=== PATIENT | female | born 1945 | race Caucasian/White ===

== ENCOUNTER 2019-01-09 12:29 | Inpatient (IN) | payer MEDICARE, OTHER ==
[~2019-01-09] VITALS: Ht 157.5 cm; Wt 90.2 kg
[2019-01-09] MEDS ORDERED: ALBUTEROL/IPRATROPIUM 2.5MG/0.5MG, 3 ML ONE (12:58)
[2019-01-09] MEDS ORDERED: ALBUTEROL/IPRATROPIUM 2.5MG/0.5MG, 3 ML NPPB SCH (13:00)
[2019-01-09] MEDS ORDERED: SODIUM CHLORIDE FLUSH 10ML SYR IVF ONE (13:00)
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
[2019-01-09 13:26] LABS: BASOPHILS # (AUTO) 0.05 x10^3/uL (0-0.1); BASOPHILS % (AUTO) 1 % (0-1); EOSINOPHILS # (AUTO) 0.05 x10^3/uL (0-0.4); EOSINOPHILS % (AUTO) 1 % (1-7); LYMPHOCYTES # (AUTO) 1.43 x10^3/uL (1-3.4); LYMPHOCYTES % (AUTO) 14 % (22-44); MD NO; MEAN CORPUSCULAR VOLUME 93.8 fL (80-100); MEAN PLATELET VOLUME 8.5 fL (7.4-10.4); MONOCYTES # (AUTO) 0.59 x10^3/uL (0.2-0.8); MONOCYTES % (AUTO) 6 % (2-9); NEUTROPHILS # (AUTO) 8.17 x10^3/uL (1.8-6.8); NEUTROPHILS % (AUTO) 79 % (42-75); PLATELET COUNT 453 x10^3/uL (130-400); RED BLOOD COUNT 4.43 x10^6/uL (3.82-5.3); RED CELL DISTRIBUTION WIDTH 14.3 % (9.6-15.2)
--- NOTE | 2019-01-09 13:26 | NUR ---
BREAK RN: PT UPRIGHT ON GURNEY AWAKE & CALM, RESPONDS APPROP TO STAFF, NAD, COMFORT MEASURES PROVIDED, FAMILY AT BS, CALL LIGHT KIRK BOYCE. ERP AT BS
[2019-01-09] MEDS ORDERED: FUROSEMIDE 40 MG/4 ML IV ONE (13:30)
[2019-01-09] MEDS ORDERED: ASPIRIN 81 MG TABLET CHEW PO ONE (13:30)
[2019-01-09] MEDS ORDERED: NITROGLYCERIN OINT 2%, 1GM TP ONE ×2 (13:30→13:34)
[2019-01-09] MEDS ORDERED: ASPIRIN 81 MG TABLET CHEW ONE (13:34)
[2019-01-09] MEDS ORDERED: FUROSEMIDE 40 MG/4 ML ONE (13:34)
[2019-01-09 13:35] LABS: INTERNATIONAL NORMALIZED RATIO 1.08 (0.93-1.1); PROTHROMBIN TIME 11.3 Seconds (9.6-11.5)
[2019-01-09 13:37] LABS: ALBUMIN 2.3 g/dL (3.4-5.0); ANION GAP 8 mmol/L (5-15); CALCIUM 8.6 mg/dL (8.5-10.1); CHLORIDE 107 mmol/L (98-107)
--- NOTE | 2019-01-09 14:16 | NUR ---
PT UP TO RESTROOM WITH STEADY GAIT. PT WITH INCREASED WOB WHEN RETURNING FROM RESTROOM. PT PLACED BACK IN [facility]. HOSPITALIST AT BEDSIDE.
[2019-01-09] MEDS ORDERED: HEPARIN 5,000 UNITS/ML, 1ML IV ONE (14:30)
[2019-01-09] MEDS ORDERED: HEPARIN 5,000 UNITS/ML, 1ML ONE (14:47)
[2019-01-09] MEDS ORDERED: HEPARIN 25,000 UNITS/500ML PMX 500 ML ONE (14:47)
--- NOTE | 2019-01-09 14:50 | NUR ---
PT UP TO RESTROOM WITH ASSITANCE OF TECH.
[2019-01-09 14:58] LABS: THYROID STIMULATING HORMONE 4.13 mIU/L (0.358-3.740)
[2019-01-09] MEDS ORDERED: POLYETHYLENE GLYCOL 17 GM PACKET PO PRN (15:00)
[2019-01-09] MEDS ORDERED: NITROGLYCERIN 0.4 MG/SPRAY SL PRN (15:00)
[2019-01-09] MEDS ORDERED: NITROGLYCERIN 0.4 MG BOTTLE (25 TABS) SL PRN ×2 (15:00)
[2019-01-09] MEDS ORDERED: LABETALOL 5MG/ML, 20ML IVPush PRN (15:00)
[2019-01-09] MEDS ORDERED: ONDANSETRON 2MG/ML, 2ML IVPush PRN (15:00)
[2019-01-09] MEDS ORDERED: PHARMACY MAY ADJ FOR RENAL FX MC PRN (15:00)
[2019-01-09] MEDS ORDERED: DOCUSATE 100 MG CAPSULE PO PRN (15:00)
[2019-01-09] MEDS ORDERED: ONDANSETRON ODT 4 MG PO PRN (15:00)
--- NOTE | 2019-01-09 15:33 | NUR ---
POC UPDATED WITH PT. PT UP TO RESTROOM WITH STEADY GAIT.
[2019-01-09 15:34] LABS: HEMOGLOBIN A1C 9.7 % (4.2-6.3)
[2019-01-09] MEDS: HEPARIN 25,000 UNITS/500ML PMX 500 ML IV PRN ×4 (15:49→19:55)
--- NOTE | 2019-01-09 15:50 | NUR ---
ANTI-XA VERIFIED PRIOR TO STARTING HEPARIN. HEPARIN VERIFIED BY DYLON CURRY. POC UPDATED WITH PT. WILL CONTINUE TO MONITOR.
[2019-01-09] MEDS: INSULIN LISPRO 100 UNITS/ML, PEN SQ-INSULIN SCH ×2 (16:00→21:45)
--- NOTE | 2019-01-09 16:35 | NUR ---
PT UP TO RESTROOM WITH STEADY GAIT. POC UPDATED WITH PT.
--- NOTE | 2019-01-09 16:46 | NUR ---
REPORT TO DYLON CORONA.
[2019-01-09] MEDS: FUROSEMIDE 40 MG/4 ML IV SCH (17:52)
[2019-01-09 20:00] VITALS: BP 174/98
[2019-01-09] MEDS: HEPARIN 5,000 UNITS/ML, 1ML IV PRN (23:18)
[2019-01-10 02:20] LABS: BASOPHILS # (AUTO) 0.08 x10^3/uL (0-0.1); BASOPHILS % (AUTO) 1 % (0-1); EOSINOPHILS # (AUTO) 0.13 x10^3/uL (0-0.4); EOSINOPHILS % (AUTO) 1 % (1-7); LYMPHOCYTES % (AUTO) 18 % (22-44); MD NO; MEAN CORPUSCULAR HEMOGLOBIN 30.1 pg (27.0-34.8); MEAN CORPUSCULAR HGB CONC 31.6 g/dL (32.4-35.8); MEAN CORPUSCULAR VOLUME 95.2 fL (80-100); MEAN PLATELET VOLUME 8.6 fL (7.4-10.4); MONOCYTES % (AUTO) 7 % (2-9); NEUTROPHILS % (AUTO) 73 % (42-75); PLATELET COUNT 412 x10^3/uL (130-400); RED BLOOD COUNT 4.15 x10^6/uL (3.82-5.3); RED CELL DISTRIBUTION WIDTH 14.9 % (9.6-15.2)
[2019-01-10 02:30] LABS: ALANINE AMINOTRANSFERASE 11 U/L (12-78); ALBUMIN 1.9 g/dL (3.4-5.0); ANION GAP 6 mmol/L (5-15); CHLORIDE 107 mmol/L (98-107); CHOLESTEROL, TOTAL 143 mg/dL (140-239); CREATININE 1.54 mg/dL (0.55-1.02)
[2019-01-10 02:33] LABS: ALKALINE PHOSPHATASE 89 U/L (45-117); BILIRUBIN,TOTAL 0.3 mg/dL (0.2-1.0); CHOL/HDL RATIO 2.4; HDL CHOL % 41 % (28-40); HDL CHOLESTEROL (DIRECT) 59 mg/dL (40-60); LDL CHOLESTEROL,CALCULATED 66 mg/dL (54-169); LDL/HDL RATIO 1.1 (0.5-3.0); TOTAL PROTEIN 6.6 g/dL (6.4-8.2); TRIGLYCERIDES 89 mg/dL (50-200); VLDL CHOLESTEROL 18 mg/dL (0-25)
[2019-01-10 04:00] VITALS: BP 160/90
[2019-01-10] MEDS: SODIUM CHLORIDE 0.9% 1,000 ML IV SCH ×2 (06:00→16:00)
[2019-01-10] MEDS: ASPIRIN 81 MG TABLET EC PO SCH (06:42)
[2019-01-10] MEDS: INSULIN LISPRO 100 UNITS/ML, PEN SQ-INSULIN SCH ×4 (07:00→22:10)
[2019-01-10] MEDS ORDERED: CARVEDILOL 6.25 MG TABLET PO SCH (08:00)
[2019-01-10] MEDS: FUROSEMIDE 40 MG/4 ML IV SCH ×2 (08:04→16:02)
[2019-01-10] MEDS ORDERED: ISOSORBIDE DINITRATE 10 MG TABLET ONE (08:08)
[2019-01-10] MEDS: HEPARIN 5,000 UNITS/ML, 1ML IV PRN ×2 (08:09→22:16)
[2019-01-10] MEDS: ISOSORBIDE DINITRATE 20 MG TABLET PO SCH ×3 (08:10→22:10)
[2019-01-10] MEDS: POTASSIUM CHLORIDE 20 MEQ TAB.ER.PRT PO SCH ×2 (10:38→16:02)
[2019-01-10 13:19] LABS: CULTURE INDICATED? YES; MICROSCOPIC INDICATED
[2019-01-10] MEDS: HEPARIN 25,000 UNITS/500ML PMX 500 ML IV PRN (16:01)
[2019-01-10 20:21] VITALS: BP 127/64
[2019-01-10] MEDS: CARVEDILOL 12.5 MG TABLET PO SCH (22:10)
[2019-01-11] MEDS: SODIUM CHLORIDE 0.9% 1,000 ML IV SCH (02:00)
[2019-01-11 04:38] LABS: BASOPHILS # (AUTO) 0.11 x10^3/uL (0-0.1); BASOPHILS % (AUTO) 1 % (0-1); EOSINOPHILS % (AUTO) 1 % (1-7); LYMPHOCYTES # (AUTO) 1.58 x10^3/uL (1-3.4); LYMPHOCYTES % (AUTO) 17 % (22-44); MD NO; MEAN CORPUSCULAR HEMOGLOBIN 30.2 pg (27.0-34.8); MEAN CORPUSCULAR HGB CONC 31.5 g/dL (32.4-35.8); MEAN PLATELET VOLUME 9.5 fL (7.4-10.4); MONOCYTES # (AUTO) 0.45 x10^3/uL (0.2-0.8); MONOCYTES % (AUTO) 5 % (2-9); NEUTROPHILS % (AUTO) 76 % (42-75); PLATELET COUNT 304 x10^3/uL (130-400); RED BLOOD COUNT 3.84 x10^6/uL (3.82-5.3)
[2019-01-11 04:48] LABS: ANION GAP 6 mmol/L (5-15); CALCIUM 7.9 mg/dL (8.5-10.1); CHLORIDE 101 mmol/L (98-107)
[2019-01-11 04:55] LABS: CREATININE 1.91 mg/dL (0.55-1.02)
[2019-01-11] MEDS: ASPIRIN 81 MG TABLET EC PO SCH (05:36)
[2019-01-11] MEDS: CARVEDILOL 12.5 MG TABLET PO SCH ×2 (05:38→13:51)
[2019-01-11] MEDS: INSULIN LISPRO 100 UNITS/ML, PEN SQ-INSULIN SCH ×3 (08:41→17:05)
[2019-01-11] MEDS ORDERED: VERAPAMIL 2.5 MG/ML, 2ML ONE (08:59)
[2019-01-11] MEDS ORDERED: BIVALIRUDIN 250 MG ONE ×2 (08:59→09:33)
[2019-01-11] MEDS ORDERED: MIDAZOLAM 1 MG/ML, 5ML ONE (08:59)
[2019-01-11] MEDS ORDERED: NITROGLYCERIN 5 MG/ML, 10ML ONE (08:59)
[2019-01-11] MEDS ORDERED: LIDOCAINE 1%, 20ML ONE ×2 (08:59→19:34)
[2019-01-11] MEDS ORDERED: FENTANYL PF 100 MCG/2ML ONE ×3 (08:59→21:21)
[2019-01-11] MEDS ORDERED: HEPARIN 1,000 UNITS/ML, 10ML ONE (09:00)
[2019-01-11 09:14] VITALS: BP 112/50
[2019-01-11] MEDS: morphine SULFATE 10 MG/ML, 1ML IVPush PRN ×3 (09:15→22:14)
[2019-01-11] MEDS ORDERED: TICAGRELOR 90 MG TABLET ONE (10:46)
[2019-01-11] MEDS: ISOSORBIDE DINITRATE 20 MG TABLET PO SCH ×2 (11:36→16:44)
[2019-01-11] MEDS: FUROSEMIDE 40 MG/4 ML IV SCH ×2 (11:36→16:44)
[2019-01-11] MEDS: POTASSIUM CHLORIDE 20 MEQ TAB.ER.PRT PO SCH ×2 (11:36→16:44)
[2019-01-11 14:15] VITALS: BP 117/58
[2019-01-11] MEDS ORDERED: FUROSEMIDE 40 MG/4 ML IV ONE (14:30)
[2019-01-11] MEDS: DOPAMINE/D5W PMX 250 ML IV PRN (18:54)
[2019-01-11] MEDS ORDERED: CARVEDILOL 12.5 MG TABLET PO SCH (21:00)
[2019-01-11] MEDS ORDERED: NOREPINEPHRINE 4 MG in SODIUM CHLORIDE 0.9% 246 ML IV PRN (22:03)
[2019-01-11] MEDS ORDERED: GLUCAGON 1 MG IM PRN (22:30)
[2019-01-11] MEDS ORDERED: LIDOCAINE-MPF 1%, 2ML ENDO PRN (22:30)
[2019-01-11] MEDS ORDERED: DEXTROSE 4 GM TAB.CHEW PO PRN (22:30)
[2019-01-11] MEDS ORDERED: BISACODYL 10 MG SUPP PR PRN (22:30)
[2019-01-11] MEDS ORDERED: SENNA/DOCUSATE TABLET NG PRN (22:30)
[2019-01-11] MEDS ORDERED: LACTULOSE 20 GM/30 ML UDC NG PRN (22:30)
[2019-01-11] MEDS: ALBUTEROL/IPRATROPIUM 2.5MG/0.5MG, 3 ML INLINE SCH (22:30)
[2019-01-11] MEDS ORDERED: PHARMACY MAY ADJ FOR RENAL FX MC SCH (22:30)
[2019-01-11] MEDS ORDERED: DEXTROSE 50%, 50ML SYRINGE IVPush PRN (22:30)
[2019-01-11] MEDS ORDERED: SENNA 176 MG/5 ML ORAL SOL NG PRN (22:30)
[2019-01-11] MEDS ORDERED: AMPICILLIN/SULBACTAM 3 GM in SODIUM CHLORIDE 0.9% 100 ML IV SCH (23:00)
[2019-01-11] MEDS: AMPICILLIN/SULBACTAM 3 GM in SODIUM CHLORIDE 0.9% 100 ML IV SCH (23:00)
[2019-01-11 23:12] LABS: BASOPHILS # (AUTO) 0.02 x10^3/uL (0-0.1); BASOPHILS % (AUTO) 0 % (0-1); EOSINOPHILS % (AUTO) 0 % (1-7); LYMPHOCYTES # (AUTO) 0.99 x10^3/uL (1-3.4); LYMPHOCYTES % (AUTO) 7 % (22-44); MD NO; MEAN CORPUSCULAR HEMOGLOBIN 30.2 pg (27.0-34.8); MEAN CORPUSCULAR HGB CONC 31.7 g/dL (32.4-35.8); MEAN CORPUSCULAR VOLUME 95.3 fL (80-100); MONOCYTES # (AUTO) 0.55 x10^3/uL (0.2-0.8); MONOCYTES % (AUTO) 4 % (2-9); NEUTROPHILS # (AUTO) 11.92 x10^3/uL (1.8-6.8); NEUTROPHILS % (AUTO) 88 % (42-75); PLATELET COUNT 386 x10^3/uL (130-400); RED BLOOD COUNT 4.36 x10^6/uL (3.82-5.3)
[2019-01-11 23:18] LABS: INTERNATIONAL NORMALIZED RATIO 1.18 (0.93-1.1); PROTHROMBIN TIME 12.3 Seconds (9.6-11.5)
[2019-01-11 23:25] LABS: ANION GAP 10 mmol/L (5-15); CALCIUM 8.2 mg/dL (8.5-10.1); CHLORIDE 99 mmol/L (98-107); CREATININE 2.02 mg/dL (0.55-1.02); TRIGLYCERIDES 227 mg/dL (50-200)
[2019-01-12] MEDS: HEPARIN 5,000 UNITS/ML, 1ML SQ SCH ×3 (00:17→15:37)
[2019-01-12] MEDS: FENTANYL PF 100 MCG/2ML IVPush PRN (00:17)
[2019-01-12] MEDS: TICAGRELOR 90 MG TABLET PO SCH ×3 (00:19→20:38)
[2019-01-12] MEDS: ISOSORBIDE DINITRATE 20 MG TABLET PO SCH (00:19)
[2019-01-12] MEDS: PROPOFOL 100 ML IV PRN ×4 (00:36→17:46)
[2019-01-12] MEDS: INSULIN LISPRO 100 UNITS/ML, PEN SQ-INSULIN SCH ×4 (00:39→20:38)
[2019-01-12] MEDS: ALBUTEROL/IPRATROPIUM 2.5MG/0.5MG, 3 ML INLINE SCH ×6 (02:17→21:43)
[2019-01-12] MEDS: DOPAMINE/D5W PMX 250 ML IV PRN (04:04)
[2019-01-12 04:38] LABS: BASOPHILS # (AUTO) 0.04 x10^3/uL (0-0.1); BASOPHILS % (AUTO) 0 % (0-1); EOSINOPHILS # (AUTO) 0.01 x10^3/uL (0-0.4); EOSINOPHILS % (AUTO) 0 % (1-7); LYMPHOCYTES # (AUTO) 1.33 x10^3/uL (1-3.4); LYMPHOCYTES % (AUTO) 10 % (22-44); MD NO; MEAN CORPUSCULAR HEMOGLOBIN 29.9 pg (27.0-34.8); MEAN CORPUSCULAR HGB CONC 31.7 g/dL (32.4-35.8); MEAN CORPUSCULAR VOLUME 94.3 fL (80-100); MEAN PLATELET VOLUME 9.1 fL (7.4-10.4); MONOCYTES # (AUTO) 1.07 x10^3/uL (0.2-0.8); MONOCYTES % (AUTO) 8 % (2-9); NEUTROPHILS % (AUTO) 82 % (42-75); PLATELET COUNT 375 x10^3/uL (130-400); RED BLOOD COUNT 4.15 x10^6/uL (3.82-5.3); RED CELL DISTRIBUTION WIDTH 14.5 % (9.6-15.2)
[2019-01-12 04:45] LABS: ALANINE AMINOTRANSFERASE 14 U/L (12-78); ALBUMIN 1.9 g/dL (3.4-5.0); ANION GAP 7 mmol/L (5-15); CALCIUM 7.8 mg/dL (8.5-10.1); CHLORIDE 100 mmol/L (98-107); CREATININE 1.98 mg/dL (0.55-1.02)
[2019-01-12 04:49] LABS: ALKALINE PHOSPHATASE 93 U/L (45-117); BILIRUBIN,TOTAL 0.5 mg/dL (0.2-1.0)
[2019-01-12 05:29] LABS: MICROSCOPIC AUTO
[2019-01-12 05:30] LABS: CULTURE INDICATED? YES
[2019-01-12] MEDS ORDERED: INSULIN LISPRO 100 UNITS/ML, PEN SQ-INSULIN SCH (07:00)
[2019-01-12] MEDS ORDERED: ASPIRIN 81 MG TABLET EC PO SCH (09:00)
[2019-01-12] MEDS ORDERED: MAGNESIUM SULFATE PMX 2GM/50ML 50 ML IV ONE ×2 (09:00)
[2019-01-12] MEDS: ASPIRIN 81 MG TABLET CHEW PO SCH (09:16)
[2019-01-12] MEDS: FUROSEMIDE 40 MG/4 ML IV SCH ×2 (09:16→15:38)
[2019-01-12] MEDS: POTASSIUM CHLORIDE 10% 40 MEQ/30 ML UDC NG SCH ×2 (09:17→20:38)
[2019-01-12] MEDS: SODIUM CHLORIDE FLUSH 10ML SYR IVF SCH ×2 (09:22→20:38)
[2019-01-12] MEDS: AMPICILLIN/SULBACTAM 3 GM in SODIUM CHLORIDE 0.9% 100 ML IV SCH ×2 (12:28→23:22)
--- NOTE | 2019-01-12 12:29 | NUR ---
TF Recommendations when appropriate: Vital High Protein ON propofol: 45 ml/hr OFF propofol: 50 ml/hr
[2019-01-13] MEDS: ALBUTEROL/IPRATROPIUM 2.5MG/0.5MG, 3 ML INLINE SCH ×6 (02:06→22:00)
[2019-01-13] MEDS: HEPARIN 5,000 UNITS/ML, 1ML SQ SCH ×4 (02:37→23:43)
[2019-01-13] MEDS: FENTANYL PF 100 MCG/2ML IVPush PRN (02:38)
[2019-01-13] MEDS: PROPOFOL 100 ML IV PRN ×4 (02:38→23:43)
[2019-01-13 04:55] LABS: BASOPHILS # (AUTO) 0.03 x10^3/uL (0-0.1); BASOPHILS % (AUTO) 0 % (0-1); EOSINOPHILS # (AUTO) 0.06 x10^3/uL (0-0.4); EOSINOPHILS % (AUTO) 1 % (1-7); LYMPHOCYTES # (AUTO) 0.85 x10^3/uL (1-3.4); LYMPHOCYTES % (AUTO) 8 % (22-44); MD NO; MEAN CORPUSCULAR HEMOGLOBIN 29.9 pg (27.0-34.8); MEAN CORPUSCULAR HGB CONC 31.7 g/dL (32.4-35.8); MEAN CORPUSCULAR VOLUME 94.4 fL (80-100); MEAN PLATELET VOLUME 9.3 fL (7.4-10.4); MONOCYTES # (AUTO) 0.94 x10^3/uL (0.2-0.8); MONOCYTES % (AUTO) 9 % (2-9); NEUTROPHILS # (AUTO) 8.84 x10^3/uL (1.8-6.8); NEUTROPHILS % (AUTO) 82 % (42-75); PLATELET COUNT 293 x10^3/uL (130-400); RED BLOOD COUNT 4.17 x10^6/uL (3.82-5.3); RED CELL DISTRIBUTION WIDTH 14.8 % (9.6-15.2)
[2019-01-13 05:08] LABS: ANION GAP 7 mmol/L (5-15); CALCIUM 8.3 mg/dL (8.5-10.1); CHLORIDE 103 mmol/L (98-107); CREATININE 2.24 mg/dL (0.55-1.02)
[2019-01-13] MEDS: INSULIN LISPRO 100 UNITS/ML, PEN SQ-INSULIN SCH ×4 (05:53→21:04)
[2019-01-13] MEDS: FUROSEMIDE 40 MG/4 ML IV SCH (07:34)
[2019-01-13] MEDS: POTASSIUM CHLORIDE 10% 40 MEQ/30 ML UDC NG SCH (07:34)
[2019-01-13] MEDS: SODIUM CHLORIDE FLUSH 10ML SYR IVF SCH ×2 (07:34→21:05)
[2019-01-13] MEDS: TICAGRELOR 90 MG TABLET PO SCH ×2 (07:35→21:04)
[2019-01-13] MEDS: ASPIRIN 81 MG TABLET CHEW PO SCH (07:35)
[2019-01-13] MEDS: CEFTRIAXONE PMX 1GM/50ML 50 ML IV SCH (09:45)
[2019-01-13] MEDS: METRONIDAZOLE PMX 500MG/100ML 100 ML IVPB SCH ×2 (12:04→17:16)
[2019-01-13] MEDS: DOPAMINE/D5W PMX 250 ML IV PRN (14:44)
[2019-01-14] MEDS: FENTANYL PF 100 MCG/2ML IVPush PRN (00:58)
[2019-01-14] MEDS: METRONIDAZOLE PMX 500MG/100ML 100 ML IVPB SCH ×3 (01:21→17:37)
[2019-01-14] MEDS: ALBUTEROL/IPRATROPIUM 2.5MG/0.5MG, 3 ML INLINE SCH ×3 (02:00→10:00)
[2019-01-14] MEDS: INSULIN LISPRO 100 UNITS/ML, PEN SQ-INSULIN SCH ×4 (03:42→21:38)
[2019-01-14 04:29] LABS: BASOPHILS # (AUTO) 0.07 x10^3/uL (0-0.1); BASOPHILS % (AUTO) 1 % (0-1); EOSINOPHILS # (AUTO) 0.32 x10^3/uL (0-0.4); EOSINOPHILS % (AUTO) 3 % (1-7); LYMPHOCYTES % (AUTO) 16 % (22-44); MD NO; MEAN CORPUSCULAR HEMOGLOBIN 30.9 pg (27.0-34.8); MEAN CORPUSCULAR HGB CONC 32.5 g/dL (32.4-35.8); MEAN PLATELET VOLUME 9.8 fL (7.4-10.4); MONOCYTES # (AUTO) 0.94 x10^3/uL (0.2-0.8); MONOCYTES % (AUTO) 10 % (2-9); NEUTROPHILS # (AUTO) 6.51 x10^3/uL (1.8-6.8); NEUTROPHILS % (AUTO) 70 % (42-75); PLATELET COUNT 252 x10^3/uL (130-400); RED BLOOD COUNT 3.81 x10^6/uL (3.82-5.3); RED CELL DISTRIBUTION WIDTH 14.8 % (9.6-15.2)
[2019-01-14 04:43] LABS: ANION GAP 6 mmol/L (5-15); CALCIUM 8.2 mg/dL (8.5-10.1); CHLORIDE 101 mmol/L (98-107); CREATININE 2.22 mg/dL (0.55-1.02); TRIGLYCERIDES 99 mg/dL (50-200)
[2019-01-14] MEDS: SODIUM CHLORIDE FLUSH 10ML SYR IVF SCH ×2 (08:36→21:39)
[2019-01-14] MEDS: FUROSEMIDE 40 MG/4 ML IV SCH ×2 (08:36→21:38)
[2019-01-14] MEDS: TICAGRELOR 90 MG TABLET PO SCH ×2 (08:45→21:38)
[2019-01-14] MEDS: ASPIRIN 81 MG TABLET CHEW PO SCH (08:47)
[2019-01-14] MEDS: PROPOFOL 100 ML IV PRN (08:48)
[2019-01-14] MEDS: CEFTRIAXONE PMX 1GM/50ML 50 ML IV SCH (10:10)
[2019-01-14] MEDS: HEPARIN 5,000 UNITS/ML, 1ML SQ SCH ×2 (11:04→16:45)
[2019-01-14] MEDS ORDERED: ALBUTEROL/IPRATROPIUM 2.5MG/0.5MG, 3 ML NPPB PRN (12:30)
[2019-01-14] MEDS: ACETAMINOPHEN 325 MG TABLET PO PRN (13:07)
[2019-01-15] MEDS: HEPARIN 5,000 UNITS/ML, 1ML SQ SCH ×3 (00:56→18:27)
[2019-01-15] MEDS: METRONIDAZOLE PMX 500MG/100ML 100 ML IVPB SCH (01:31)
[2019-01-15] MEDS: INSULIN LISPRO 100 UNITS/ML, PEN SQ-INSULIN SCH ×4 (03:07→21:30)
[2019-01-15 04:58] LABS: BASOPHILS # (AUTO) 0.02 x10^3/uL (0-0.1); BASOPHILS % (AUTO) 0 % (0-1); EOSINOPHILS # (AUTO) 0.42 x10^3/uL (0-0.4); EOSINOPHILS % (AUTO) 5 % (1-7); LYMPHOCYTES # (AUTO) 1.41 x10^3/uL (1-3.4); LYMPHOCYTES % (AUTO) 15 % (22-44); MD NO; MEAN CORPUSCULAR HEMOGLOBIN 30.2 pg (27.0-34.8); MEAN CORPUSCULAR HGB CONC 31.7 g/dL (32.4-35.8); MEAN CORPUSCULAR VOLUME 95.5 fL (80-100); MEAN PLATELET VOLUME 9.9 fL (7.4-10.4); MONOCYTES # (AUTO) 0.97 x10^3/uL (0.2-0.8); MONOCYTES % (AUTO) 11 % (2-9); NEUTROPHILS # (AUTO) 6.31 x10^3/uL (1.8-6.8); NEUTROPHILS % (AUTO) 69 % (42-75); PLATELET COUNT 249 x10^3/uL (130-400); RED BLOOD COUNT 3.95 x10^6/uL (3.82-5.3); RED CELL DISTRIBUTION WIDTH 14.8 % (9.6-15.2)
[2019-01-15 05:05] LABS: ANION GAP 4 mmol/L (5-15); CALCIUM 8.5 mg/dL (8.5-10.1); CHLORIDE 101 mmol/L (98-107); CREATININE 2.06 mg/dL (0.55-1.02)
[2019-01-15] MEDS: ASPIRIN 81 MG TABLET CHEW PO SCH (09:27)
[2019-01-15] MEDS: CEFTRIAXONE PMX 1GM/50ML 50 ML IV SCH (09:27)
[2019-01-15] MEDS: TICAGRELOR 90 MG TABLET PO SCH ×2 (09:27→21:30)
[2019-01-15] MEDS: SODIUM CHLORIDE FLUSH 10ML SYR IVF SCH ×2 (09:28→21:30)
[2019-01-16] MEDS: HEPARIN 5,000 UNITS/ML, 1ML SQ SCH ×3 (00:40→16:30)
[2019-01-16] MEDS: CEFTRIAXONE PMX 1GM/50ML 50 ML IV SCH (08:30)
[2019-01-16] MEDS: TICAGRELOR 90 MG TABLET PO SCH ×2 (08:31→19:50)
[2019-01-16] MEDS: ASPIRIN 81 MG TABLET CHEW PO SCH (08:31)
[2019-01-16] MEDS: SODIUM CHLORIDE FLUSH 10ML SYR IVF SCH ×2 (08:32→19:50)
[2019-01-16] MEDS: INSULIN LISPRO 100 UNITS/ML, PEN SQ-INSULIN SCH ×4 (09:11→19:50)
[2019-01-16] MEDS ORDERED: PNEUMOCOCCAL 23 VACCINE IM-VACC ONE (11:30)
[2019-01-16 19:50] VITALS: BP 164/91
[2019-01-17] MEDS: HEPARIN 5,000 UNITS/ML, 1ML SQ SCH ×4 (00:09→23:50)
[2019-01-17 02:09] VITALS: BP 116/55
[2019-01-17 04:46] LABS: BASOPHILS # (AUTO) 0.04 x10^3/uL (0-0.1); BASOPHILS % (AUTO) 1 % (0-1); EOSINOPHILS # (AUTO) 0.47 x10^3/uL (0-0.4); EOSINOPHILS % (AUTO) 6 % (1-7); LYMPHOCYTES # (AUTO) 2.49 x10^3/uL (1-3.4); LYMPHOCYTES % (AUTO) 31 % (22-44); MD NO; MEAN CORPUSCULAR HGB CONC 31.5 g/dL (32.4-35.8); MEAN CORPUSCULAR VOLUME 95.4 fL (80-100); MEAN PLATELET VOLUME 9.3 fL (7.4-10.4); MONOCYTES # (AUTO) 1.06 x10^3/uL (0.2-0.8); MONOCYTES % (AUTO) 13 % (2-9); NEUTROPHILS # (AUTO) 4.06 x10^3/uL (1.8-6.8); NEUTROPHILS % (AUTO) 50 % (42-75); PLATELET COUNT 247 x10^3/uL (130-400); RED BLOOD COUNT 4.12 x10^6/uL (3.82-5.3)
[2019-01-17 04:49] LABS: ANION GAP 4 mmol/L (5-15); CALCIUM 8.8 mg/dL (8.5-10.1); CHLORIDE 102 mmol/L (98-107); CREATININE 1.62 mg/dL (0.55-1.02)
[2019-01-17] MEDS: INSULIN LISPRO 100 UNITS/ML, PEN SQ-INSULIN SCH ×4 (07:00→21:58)
[2019-01-17 07:40] VITALS: BP 174/85
[2019-01-17] MEDS: TICAGRELOR 90 MG TABLET PO SCH ×2 (08:31→20:50)
[2019-01-17] MEDS: LISINOPRIL 5 MG TABLET PO SCH (08:31)
[2019-01-17] MEDS: ASPIRIN 81 MG TABLET CHEW PO SCH (08:31)
[2019-01-17] MEDS: SODIUM CHLORIDE FLUSH 10ML SYR IVF SCH ×2 (08:32→20:50)
[2019-01-17] MEDS: CEFTRIAXONE PMX 1GM/50ML 50 ML IV SCH (09:42)
[2019-01-17 14:00] VITALS: BP 154/75
[2019-01-17 18:49] VITALS: BP 147/80
[2019-01-17] MEDS: ATORVASTATIN 40 MG TABLET PO SCH (20:50)
[2019-01-17] MEDS ORDERED: SODIUM CHLORIDE FLUSH 0.9%, 20 ML ONE (23:00)
[2019-01-17] MEDS ORDERED: PROPOFOL 10 MG/ML, 100ML IV ONE (23:00)
[2019-01-17] MEDS ORDERED: VECURONIUM 10 MG ONE (23:00)
[2019-01-17] MEDS ORDERED: ETOMIDATE 20 MG/10 ML ONE (23:00)
[2019-01-18 02:17] VITALS: BP 136/74
[2019-01-18 05:42] LABS: BASOPHILS # (AUTO) 0.04 x10^3/uL (0-0.1); BASOPHILS % (AUTO) 1 % (0-1); EOSINOPHILS # (AUTO) 0.29 x10^3/uL (0-0.4); EOSINOPHILS % (AUTO) 4 % (1-7); LYMPHOCYTES # (AUTO) 2.04 x10^3/uL (1-3.4); LYMPHOCYTES % (AUTO) 29 % (22-44); MD NO; MEAN CORPUSCULAR HEMOGLOBIN 30.7 pg (27.0-34.8); MEAN CORPUSCULAR VOLUME 95.9 fL (80-100); MEAN PLATELET VOLUME 9.5 fL (7.4-10.4); MONOCYTES % (AUTO) 14 % (2-9); NEUTROPHILS # (AUTO) 3.68 x10^3/uL (1.8-6.8); NEUTROPHILS % (AUTO) 52 % (42-75); PLATELET COUNT 247 x10^3/uL (130-400); RED BLOOD COUNT 4.12 x10^6/uL (3.82-5.3); RED CELL DISTRIBUTION WIDTH 15.2 % (9.6-15.2)
[2019-01-18 05:48] LABS: CHLORIDE 104 mmol/L (98-107)
[2019-01-18 05:55] LABS: ANION GAP 7 mmol/L (5-15); CALCIUM 8.6 mg/dL (8.5-10.1)
[2019-01-18 06:45] VITALS: BP 155/79
[2019-01-18] MEDS: INSULIN LISPRO 100 UNITS/ML, PEN SQ-INSULIN SCH ×4 (08:22→21:09)
[2019-01-18] MEDS: ASPIRIN 81 MG TABLET CHEW PO SCH (09:11)
[2019-01-18] MEDS: CEFTRIAXONE PMX 1GM/50ML 50 ML IV SCH (09:11)
[2019-01-18] MEDS: TICAGRELOR 90 MG TABLET PO SCH ×2 (09:11→20:35)
[2019-01-18] MEDS: LISINOPRIL 5 MG TABLET PO SCH (09:11)
[2019-01-18] MEDS: SODIUM CHLORIDE FLUSH 10ML SYR IVF SCH ×2 (09:11→20:35)
[2019-01-18] MEDS: HEPARIN 5,000 UNITS/ML, 1ML SQ SCH ×2 (09:11→17:57)
[2019-01-18] MEDS ORDERED: POTASSIUM CHLORIDE 20 MEQ TAB.ER.PRT PO ONE ×2 (09:30→16:00)
[2019-01-18 13:50] VITALS: BP 161/82
[2019-01-18] MEDS ORDERED: FUROSEMIDE 20 MG/2 ML IV ONE (16:30)
[2019-01-18 18:43] VITALS: BP 139/81
[2019-01-18] MEDS: ATORVASTATIN 40 MG TABLET PO SCH (20:35)
[2019-01-19 00:12] VITALS: BP 147/83
[2019-01-19] MEDS: HEPARIN 5,000 UNITS/ML, 1ML SQ SCH ×3 (02:48→17:28)
[2019-01-19 04:52] LABS: BASOPHILS # (AUTO) 0.05 x10^3/uL (0-0.1); BASOPHILS % (AUTO) 1 % (0-1); EOSINOPHILS # (AUTO) 0.35 x10^3/uL (0-0.4); EOSINOPHILS % (AUTO) 5 % (1-7); LYMPHOCYTES # (AUTO) 2.13 x10^3/uL (1-3.4); LYMPHOCYTES % (AUTO) 32 % (22-44); MD NO; MEAN CORPUSCULAR HEMOGLOBIN 30.6 pg (27.0-34.8); MEAN CORPUSCULAR HGB CONC 32.1 g/dL (32.4-35.8); MEAN CORPUSCULAR VOLUME 95.6 fL (80-100); MEAN PLATELET VOLUME 9.3 fL (7.4-10.4); MONOCYTES # (AUTO) 0.93 x10^3/uL (0.2-0.8); MONOCYTES % (AUTO) 14 % (2-9); NEUTROPHILS # (AUTO) 3.29 x10^3/uL (1.8-6.8); NEUTROPHILS % (AUTO) 49 % (42-75); PLATELET COUNT 237 x10^3/uL (130-400); RED BLOOD COUNT 4.13 x10^6/uL (3.82-5.3); RED CELL DISTRIBUTION WIDTH 14.9 % (9.6-15.2)
[2019-01-19 05:02] LABS: ALANINE AMINOTRANSFERASE 13 U/L (12-78); ALBUMIN 2.1 g/dL (3.4-5.0); ANION GAP 4 mmol/L (5-15); CALCIUM 8.7 mg/dL (8.5-10.1); CHLORIDE 106 mmol/L (98-107); CREATININE 1.61 mg/dL (0.55-1.02)
[2019-01-19 05:04] LABS: ALKALINE PHOSPHATASE 67 U/L (45-117); BILIRUBIN,TOTAL 0.3 mg/dL (0.2-1.0); TOTAL PROTEIN 6.6 g/dL (6.4-8.2)
[2019-01-19 08:36] VITALS: BP 164/100
[2019-01-19 09:06] VITALS: BP 116/74
[2019-01-19] MEDS: TICAGRELOR 90 MG TABLET PO SCH ×2 (09:19→20:59)
[2019-01-19] MEDS: CEFTRIAXONE PMX 1GM/50ML 50 ML IV SCH (09:19)
[2019-01-19] MEDS: INSULIN LISPRO 100 UNITS/ML, PEN SQ-INSULIN SCH ×4 (09:19→21:00)
[2019-01-19] MEDS: ASPIRIN 81 MG TABLET CHEW PO SCH (09:20)
[2019-01-19] MEDS: SODIUM CHLORIDE FLUSH 10ML SYR IVF SCH ×2 (09:20→21:00)
[2019-01-19] MEDS: LISINOPRIL 5 MG TABLET PO SCH (09:20)
[2019-01-19] MEDS: METOPROLOL TARTRATE 25 MG TABLET PO SCH ×2 (09:25→16:33)
[2019-01-19 12:30] VITALS: BP 116/66
[2019-01-19] MEDS: ACETAMINOPHEN 325 MG TABLET PO PRN (16:20)
[2019-01-19] MEDS ORDERED: LORazepam 0.5MG TABLET ONE (16:31)
[2019-01-19] MEDS: LORazepam 0.5MG TABLET PO PRN (16:34)
[2019-01-19 19:33] VITALS: BP 138/78
[2019-01-19] MEDS: ATORVASTATIN 40 MG TABLET PO SCH (20:59)
[2019-01-20] MEDS: HEPARIN 5,000 UNITS/ML, 1ML SQ SCH ×3 (01:14→17:26)
[2019-01-20 01:21] VITALS: BP 133/76
[2019-01-20 04:59] LABS: BASOPHILS # (AUTO) 0.09 x10^3/uL (0-0.1); BASOPHILS % (AUTO) 1 % (0-1); EOSINOPHILS # (AUTO) 0.46 x10^3/uL (0-0.4); EOSINOPHILS % (AUTO) 6 % (1-7); LYMPHOCYTES # (AUTO) 2.73 x10^3/uL (1-3.4); LYMPHOCYTES % (AUTO) 36 % (22-44); MD NO; MEAN CORPUSCULAR HEMOGLOBIN 30.6 pg (27.0-34.8); MEAN CORPUSCULAR HGB CONC 31.9 g/dL (32.4-35.8); MEAN CORPUSCULAR VOLUME 96.2 fL (80-100); MEAN PLATELET VOLUME 9.1 fL (7.4-10.4); MONOCYTES # (AUTO) 1.01 x10^3/uL (0.2-0.8); MONOCYTES % (AUTO) 13 % (2-9); NEUTROPHILS # (AUTO) 3.28 x10^3/uL (1.8-6.8); NEUTROPHILS % (AUTO) 43 % (42-75); PLATELET COUNT 235 x10^3/uL (130-400); RED BLOOD COUNT 3.97 x10^6/uL (3.82-5.3); RED CELL DISTRIBUTION WIDTH 15.3 % (9.6-15.2)
[2019-01-20 05:12] LABS: ALANINE AMINOTRANSFERASE 15 U/L (12-78); ALBUMIN 2.1 g/dL (3.4-5.0); ANION GAP 5 mmol/L (5-15); CALCIUM 8.4 mg/dL (8.5-10.1); CHLORIDE 107 mmol/L (98-107); CREATININE 1.46 mg/dL (0.55-1.02)
[2019-01-20 05:15] LABS: ALKALINE PHOSPHATASE 68 U/L (45-117); BILIRUBIN,TOTAL 0.5 mg/dL (0.2-1.0); TOTAL PROTEIN 6.6 g/dL (6.4-8.2)
[2019-01-20] MEDS: METOPROLOL TARTRATE 25 MG TABLET PO SCH ×4 (06:01→20:47)
[2019-01-20 06:30] VITALS: BP 127/72
[2019-01-20] MEDS: INSULIN LISPRO 100 UNITS/ML, PEN SQ-INSULIN SCH ×4 (08:13→20:58)
[2019-01-20] MEDS: TICAGRELOR 90 MG TABLET PO SCH ×2 (08:14→20:46)
[2019-01-20] MEDS: LISINOPRIL 5 MG TABLET PO SCH (08:14)
[2019-01-20] MEDS: SODIUM CHLORIDE FLUSH 10ML SYR IVF SCH ×2 (08:14→20:47)
[2019-01-20] MEDS: ASPIRIN 81 MG TABLET CHEW PO SCH (08:14)
[2019-01-20] MEDS: CEFTRIAXONE PMX 1GM/50ML 50 ML IV SCH (10:16)
[2019-01-20 12:31] VITALS: BP 135/77
[2019-01-20 13:11] VITALS: BP 155/88
[2019-01-20 18:55] VITALS: BP 133/80
[2019-01-20] MEDS: ATORVASTATIN 40 MG TABLET PO SCH (20:46)
[2019-01-21 01:52] VITALS: BP 141/83
[2019-01-21] MEDS: HEPARIN 5,000 UNITS/ML, 1ML SQ SCH (02:55)
[2019-01-21 06:44] VITALS: BP 137/68
[2019-01-21] MEDS: TICAGRELOR 90 MG TABLET PO SCH ×2 (08:29→20:02)
[2019-01-21] MEDS: METOPROLOL TARTRATE 25 MG TABLET PO SCH ×4 (08:29→20:04)
[2019-01-21] MEDS: INSULIN LISPRO 100 UNITS/ML, PEN SQ-INSULIN SCH ×4 (08:29→20:05)
[2019-01-21] MEDS: ASPIRIN 81 MG TABLET CHEW PO SCH (08:29)
[2019-01-21] MEDS: LISINOPRIL 5 MG TABLET PO SCH (08:30)
[2019-01-21] MEDS: SODIUM CHLORIDE FLUSH 10ML SYR IVF SCH ×2 (08:30→20:03)
[2019-01-21] MEDS ORDERED: METOPROLOL TARTRATE 25 MG TABLET PO ONE (09:00)
[2019-01-21] MEDS: CEFTRIAXONE PMX 1GM/50ML 50 ML IV SCH (10:09)
[2019-01-21 11:55] VITALS: BP 144/84
[2019-01-21 12:42] VITALS: BP 148/81
[2019-01-21] MEDS: CEFDINIR 300 MG CAPSULE PO SCH ×2 (16:48→20:03)
[2019-01-21 18:54] VITALS: BP 148/81
[2019-01-21] MEDS: ATORVASTATIN 40 MG TABLET PO SCH (20:03)
[2019-01-22] MEDS: ACETAMINOPHEN 325 MG TABLET PO PRN ×2 (00:15→21:56)
[2019-01-22] MEDS: LORazepam 0.5MG TABLET PO PRN (00:17)
[2019-01-22 00:57] VITALS: BP 119/75
[2019-01-22 07:05] VITALS: BP 120/72
[2019-01-22 08:53] LABS: BASOPHILS # (AUTO) 0.07 x10^3/uL (0-0.1); BASOPHILS % (AUTO) 1 % (0-1); EOSINOPHILS # (AUTO) 0.29 x10^3/uL (0-0.4); EOSINOPHILS % (AUTO) 4 % (1-7); LYMPHOCYTES # (AUTO) 2.35 x10^3/uL (1-3.4); LYMPHOCYTES % (AUTO) 31 % (22-44); MD NO; MEAN CORPUSCULAR HEMOGLOBIN 30.2 pg (27.0-34.8); MEAN CORPUSCULAR HGB CONC 32.1 g/dL (32.4-35.8); MEAN CORPUSCULAR VOLUME 94.1 fL (80-100); MEAN PLATELET VOLUME 8.9 fL (7.4-10.4); MONOCYTES # (AUTO) 0.84 x10^3/uL (0.2-0.8); MONOCYTES % (AUTO) 11 % (2-9); NEUTROPHILS # (AUTO) 4.11 x10^3/uL (1.8-6.8); NEUTROPHILS % (AUTO) 54 % (42-75); PLATELET COUNT 225 x10^3/uL (130-400); RED BLOOD COUNT 4.16 x10^6/uL (3.82-5.3); RED CELL DISTRIBUTION WIDTH 14.9 % (9.6-15.2)
[2019-01-22 08:54] LABS: ALANINE AMINOTRANSFERASE 18 U/L (12-78); ALBUMIN 2.4 g/dL (3.4-5.0); ANION GAP 11 mmol/L (5-15); CALCIUM 8.6 mg/dL (8.5-10.1); CHLORIDE 106 mmol/L (98-107); CREATININE 1.54 mg/dL (0.55-1.02)
[2019-01-22 08:56] LABS: ALKALINE PHOSPHATASE 73 U/L (45-117); BILIRUBIN,TOTAL 0.5 mg/dL (0.2-1.0); TOTAL PROTEIN 7.4 g/dL (6.4-8.2)
[2019-01-22] MEDS: SODIUM CHLORIDE NASAL SPRAY 45ML BOTTLE NAS PRN (08:56)
[2019-01-22] MEDS: METOPROLOL TARTRATE 25 MG TABLET PO SCH (08:57)
[2019-01-22] MEDS: INSULIN LISPRO 100 UNITS/ML, PEN SQ-INSULIN SCH ×4 (08:57→21:47)
[2019-01-22] MEDS: ASPIRIN 81 MG TABLET CHEW PO SCH (08:57)
[2019-01-22] MEDS: TICAGRELOR 90 MG TABLET PO SCH ×2 (08:57→21:46)
[2019-01-22] MEDS: CEFDINIR 300 MG CAPSULE PO SCH ×2 (08:58→21:46)
[2019-01-22] MEDS: LISINOPRIL 5 MG TABLET PO SCH (08:58)
[2019-01-22] MEDS: SODIUM CHLORIDE FLUSH 10ML SYR IVF SCH ×2 (09:00→21:46)
[2019-01-22] MEDS: METOPROLOL SUCCINATE 50 MG TAB.ER.24H PO SCH (11:26)
[2019-01-22 12:16] VITALS: BP 127/78
[2019-01-22 12:25] VITALS: BP 116/64
[2019-01-22 20:08] VITALS: BP 131/79
[2019-01-22] MEDS: ATORVASTATIN 40 MG TABLET PO SCH (21:46)
[2019-01-23 00:57] VITALS: BP 129/77
[2019-01-23] MEDS: SODIUM CHLORIDE NASAL SPRAY 45ML BOTTLE NAS PRN (01:16)
[2019-01-23] MEDS: METOPROLOL SUCCINATE 50 MG TAB.ER.24H PO SCH (05:32)
[2019-01-23 06:36] LABS: BASOPHILS # (AUTO) 0.07 x10^3/uL (0-0.1); BASOPHILS % (AUTO) 1 % (0-1); EOSINOPHILS # (AUTO) 0.45 x10^3/uL (0-0.4); EOSINOPHILS % (AUTO) 5 % (1-7); LYMPHOCYTES # (AUTO) 3.12 x10^3/uL (1-3.4); LYMPHOCYTES % (AUTO) 37 % (22-44); MD NO; MEAN CORPUSCULAR HGB CONC 32.4 g/dL (32.4-35.8); MEAN CORPUSCULAR VOLUME 95.5 fL (80-100); MONOCYTES # (AUTO) 0.89 x10^3/uL (0.2-0.8); MONOCYTES % (AUTO) 11 % (2-9); NEUTROPHILS # (AUTO) 3.91 x10^3/uL (1.8-6.8); NEUTROPHILS % (AUTO) 46 % (42-75); PLATELET COUNT 223 x10^3/uL (130-400); RED BLOOD COUNT 4.09 x10^6/uL (3.82-5.3); RED CELL DISTRIBUTION WIDTH 14.8 % (9.6-15.2)
[2019-01-23 06:45] LABS: ALANINE AMINOTRANSFERASE 19 U/L (12-78); ALBUMIN 2.4 g/dL (3.4-5.0); ANION GAP 10 mmol/L (5-15); CALCIUM 8.7 mg/dL (8.5-10.1); CHLORIDE 107 mmol/L (98-107); CREATININE 1.67 mg/dL (0.55-1.02)
[2019-01-23 06:48] LABS: ALKALINE PHOSPHATASE 70 U/L (45-117); BILIRUBIN,TOTAL 0.5 mg/dL (0.2-1.0); TOTAL PROTEIN 7.2 g/dL (6.4-8.2)
[2019-01-23 07:20] VITALS: BP 129/79
[2019-01-23] MEDS: TICAGRELOR 90 MG TABLET PO SCH (08:25)
[2019-01-23] MEDS: ASPIRIN 81 MG TABLET CHEW PO SCH (08:25)
[2019-01-23] MEDS: INSULIN LISPRO 100 UNITS/ML, PEN SQ-INSULIN SCH ×2 (08:25→12:42)
[2019-01-23] MEDS: CEFDINIR 300 MG CAPSULE PO SCH (08:25)
[2019-01-23] MEDS: SODIUM CHLORIDE FLUSH 10ML SYR IVF SCH (08:26)
[2019-01-23] MEDS: LISINOPRIL 5 MG TABLET PO SCH (08:26)
[2019-01-23] MEDS ORDERED: NYSTATIN CRM 15GM TP SCH (10:30)
[2019-01-23] MEDS ORDERED: NYST15CR33 TP (13:20)
[2019-01-23] MEDS ORDERED: ASPI-515 PO (13:20)
[2019-01-23] MEDS ORDERED: METO-93 PO (13:20)
[2019-01-23] MEDS ORDERED: TICA90TA PO (13:20)
[2019-01-23] MEDS ORDERED: ATOR40TA78 PO (13:20)
[2019-01-23] MEDS ORDERED: LISI5TAB7 PO (13:20)
[2019-01-23 14:20] VITALS: BP 143/84
[2019-01-23] MEDS ORDERED: INSU100V8 SQ (16:34)
== END 2019-01-23 17:48 | DRG 246 ==
LOC: ED 13:38 → EDIP 13:39 → ED 14:45 → ICU 17:10 → CCU 01-12 05:54 → 5SO 01-17 07:28
PROVIDERS: ADMIT Internal Medicine; ATTEND Internal Medicine
PROC: 027034Z Dilation of Coronary Artery, One Artery with Drug-eluting Intraluminal Device, Percutaneous Approach (ICD-10-PCS; principal; 2019-01-11)
PROC: 4A023N7 Measurement of Cardiac Sampling and Pressure, Left Heart, Percutaneous Approach (ICD-10-PCS; 2019-01-11)
PROC: B211YZZ Fluoroscopy of Multiple Coronary Arteries using Other Contrast (ICD-10-PCS; 2019-01-11)
PROC: 02JA3ZZ Inspection of Heart, Percutaneous Approach (ICD-10-PCS; 2019-01-11)
PROC: 5A1945Z Respiratory Ventilation, 24-96 Consecutive Hours (ICD-10-PCS; 2019-01-11)
PROC: 0BH17EZ Insertion of Endotracheal Airway into Trachea, Via Natural or Artificial Opening (ICD-10-PCS; 2019-01-11)
PROC: 5A1223Z Performance of Cardiac Pacing, Continuous (ICD-10-PCS; 2019-01-11)
PROC: 0T9B70Z Drainage of Bladder with Drainage Device, Via Natural or Artificial Opening (ICD-10-PCS; 2019-01-12)
DX: I21.4 Non-ST elevation (NSTEMI) myocardial infarction (principal); J96.01 Acute respiratory failure with hypoxia; E43 Unspecified severe protein-calorie malnutrition; I50.33 Acute on chronic diastolic (congestive) heart failure; J69.0 Pneumonitis due to inhalation of food and vomit; N17.0 Acute kidney failure with tubular necrosis; E87.3 Alkalosis; I13.0 Hypertensive heart and chronic kidney disease with heart failure and stage 1 through stage 4 chronic kidney disease, or unspecified chronic kidney disease; I47.2 Ventricular tachycardia; N39.0 Urinary tract infection, site not specified; Z66 Do not resuscitate; B96.1 Klebsiella pneumoniae [K. pneumoniae] as the cause of diseases classified elsewhere; B96.89 Other specified bacterial agents as the cause of diseases classified elsewhere; E11.22 Type 2 diabetes mellitus with diabetic chronic kidney disease; E11.649 Type 2 diabetes mellitus with hypoglycemia without coma; E11.65 Type 2 diabetes mellitus with hyperglycemia; Z68.36 Body mass index [BMI] 36.0-36.9, adult; E66.01 Morbid (severe) obesity due to excess calories; E78.5 Hyperlipidemia, unspecified; E87.6 Hypokalemia; I08.0 Rheumatic disorders of both mitral and aortic valves; I25.10 Atherosclerotic heart disease of native coronary artery without angina pectoris; I25.5 Ischemic cardiomyopathy; I27.20 Pulmonary hypertension, unspecified; I44.30 Unspecified atrioventricular block; I48.91 Unspecified atrial fibrillation; J44.9 Chronic obstructive pulmonary disease, unspecified; N18.3 Chronic kidney disease, stage 3 (moderate); Z79.82 Long term (current) use of aspirin; Z79.899 Other long term (current) drug therapy; Z82.49 Family history of ischemic heart disease and other diseases of the circulatory system; Z87.891 Personal history of nicotine dependence; Z91.14 Patient's other noncompliance with medication regimen; Z95.5 Presence of coronary angioplasty implant and graft; Z88.2 Allergy status to sulfonamides; Z90.49 Acquired absence of other specified parts of digestive tract
CPT/HCPCS: 33210; 36415; 36600; 71045; 80048; 80053; 80061; 81001; 82040; 82803; 82962; 83036; 83605; 83735; 83880; 84100; 84145; 84443; 84478; 84484; 85025; 85520; 85610; 85730; 87040; 87070; 87077; 87081; 87086; 87186; 87205; 90732; 93005; 93306; 93458; 93970; 94002; 94003; 94640; 96374; 99156; 99157; 99291; C1760; C1769; C1894; C9600; G0378; J0295; J0583; J0696; J1265; J1644; J1940; J2250; J2405; J2704; J3010; J7620; C1725; C1874; C1887; J1815; J2270; J3475; Q9967

== ENCOUNTER → 2020-04-27 | Outpatient (CLI) | payer MEDICARE ==
[~2020-04-27] MED LIST: ACET650S21 PO; ALPR0.5T PO; AMINOPHYLLINE 25 MG/ML, 10ML ONE; AMLO-150 PO; ASPI-515 PO; ASPI81TA45 PO; ATOR-2 PO; ATOR40TA78 PO; AZIT500T10 PO; CEFD300C37 PO; ENOX30DI3 SQ; FAMO-79 PO; FLUT16SP24 NAS; FURO40TA6 PO; HEPA50002 SQ; INSU100I11 SQ-INSULIN; INSU100V8 SQ; LIDO700A20 TD; LISI5TAB7 PO; METO-93 PO; METO50TA82 PO/NG; NYST15CR TP; PHEN15SP3 NAS; POTA20TA6 PO; PSYL3.4P8 PO; REGADENOSON 0.4 MG/5 ML SYRINGE ONE; SIME125T PO; SODI44SP NAS; TICA90TA PO
== END | disposition home or self-care (01) ==
LOC: CFH 07:11
PROVIDERS: ATTEND Internal Medicine Cardiovascular Disease
DX: I21.19 ST elevation (STEMI) myocardial infarction involving other coronary artery of inferior wall (principal); I48.0 Paroxysmal atrial fibrillation; I10 Essential (primary) hypertension; I25.10 Atherosclerotic heart disease of native coronary artery without angina pectoris
CPT/HCPCS: 78452; 93017; A9502; J0280; J2785